=== PATIENT | male | born 1950 | race Caucasian/White ===

== ENCOUNTER 2025-09-12 18:13 | Emergency (ER) | payer OTHER, SELFPAY ==
[2025-09-12 18:18] VITALS: BP 144/99; PULSE 72; RESP 18; TEMP 36.8; O2SAT 98; BMI 24.7
--- NOTE | 2025-09-12 18:24 | DI.RAD.S_ITS ---
PROCEDURE: XR FINGER LT MIN 2V INDICATIONS: known abscess getting worse with abx TECHNIQUE: AP hand, 2 views of the 2nd finger(s) acquired. COMPARISON: None. FINDINGS: Bones: No fractures or dislocations. Osteoarthritic changes are noted throughout 2nd PIP and DIP joints. No gross bony erosive changes are noted. No suspicious bony lesions. Soft tissues: Soft tissue swelling surrounding distal portion of 2nd finger is seen. No suspicious soft tissue calcifications. 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 No acute fracture or dislocation. No radiographic evidence of osteomyelitis. Soft tissue swelling surrounding distal portion of 2nd finger. Dictated by: Tarun Bolden M.D. on 09/12/2025 at 19:01 Approved by: Tarun Bolden M.D. on 09/12/2025 at 19:01
[2025-09-12 22:24] VITALS: BP 162/77; PULSE 66; RESP 16; TEMP 36.3; O2SAT 99
--- NOTE | 2025-09-12 22:58 | PC.WOUNDPHOT ---
L index finger Swelling and induration from tip to base o L index finger Tip of L index finger
[2025-09-13] MEDS: LIDOCAINE 1% (PF) 5 ML INJ (00:02)
--- NOTE | 2025-09-13 00:38 | ED.GENADULT ---
HPI - General Adult General Chief complaint: Extremity Injury, Upper Stated complaint: Left index finger abcess. Time Seen by Provider: 09/12/25 22:29 Source: patient Mode of arrival: Ambulatory History of Present Illness HPI narrative: 75-year-old male with left index finger infection that is progressing on oral antibiotic Augmentin, had needle aspiration to suspected abscess in clinic, history of diabetes noted. Worsening infection and swelling of the affected finger today. No swelling to the hand or lymphangitic streaking of the forearm/wrist. He is tolerating the Augmentin, but unfortunately this infection is not resolving. No injury or foreign body/puncture recalled. No animal or human bite injury known. X-ray hand/finger series, no obvious foreign body or fracture, some DJD changes, no osteomyelitis changes. See radiology report. Related Data Previous Rx's ?Medication ?Instructions ?Recorded doxycycline hyclate 100 mg tablet 100 mg PO BID #14 tabs 09/13/25 doxycycline hyclate 150 mg tablet 100 mg (0.6667 x 150 mg) PO BID 7 09/13/25 days #10 tabs Allergies Allergy/AdvReac Type Severity Reaction Status Date / Time No Known Allergies Allergy Verified 09/12/25 18:23 Patient History Social History Smoking Status: Never smoker Smoking Status: Never smoker Exam Narrative Exam Narrative: GENERAL: Well-developed patient, in mild distress. HEAD: Atraumatic. Normocephalic. EYES: Pupils equal round and reactive. Extraocular motions intact. No scleral icterus. No injection or drainage. ENT: Nose without bleeding, purulent drainage. No obvious facial injury or swelling NECK: Trachea midline. Non tender CARDIOVASCULAR: Regular rate and rhythm without murmurs, gallops, or rubs. RESPIRATORY: Clear to auscultation. Breath sounds equal bilaterally. No wheezes, rales, or rhonchi. GASTROINTESTINAL: Abdomen soft, non-tender, nondistended. EXTREMITIES: Left index finger with periungual swelling and purulence appearance underneath the skin suspected abscess medial aspect, some surrounding erythema distal phalanx, no expressible fluid from underneath the nailbed. BACK: Nontender without deformity or crepitance. No flank tenderness. NEURO: AOx3. Motor functions grossly nonfocal. SKIN: No rash or erythema of visible areas Initial Vital Signs Initial Vital Signs: Vital Signs Temperature 98.2 F 09/12/25 18:18 Pulse Rate 72 09/12/25 18:18 Respiratory Rate 18 09/12/25 18:18 Blood Pressure 144/99 H 09/12/25 18:18 Pulse Oximetry 98 09/12/25 18:18 Oxygen Delivery Method Room Air 09/12/25 18:18 Procedures Abscess I/D I&D #1: Time of procedure: 01:30 Site: hand (Left index fingertip/nail) Side (if applicable): left Local Anesthetic: lidocaine 1% Amount of anesthesia used (mL): 2 Technique: incised with #11 blade Amount of fluid expressed (mL): 2 Irrigation: No Packing used?: none Complications: pain Course Orders Ordered: ED Orders 09/13/25 01:20 Wound Culture and Gram Stain Stat Discontinued Medications Amoxicillin/Clavulanate Potassium (Amoxicillin/Clav 875/125 Mg) 1 tab PO NOW ONE Stop: 09/13/25 01:23 Last Admin: 09/13/25 01:29 Dose: 1 tab Documented By: NEGAR Bacitracin (Bacitracin Oint 0.9 Gm Pckt) 1 applic TOP NOW ONE Stop: 09/13/25 01:49 Last Admin: 09/13/25 02:16 Dose: 1 applic Documented By: NEGAR Doxycycline Hyclate (Doxycycline Hyclate 100 Mg Tablet) 100 mg PO NOW ONE Stop: 09/13/25 01:23 Last Admin: 09/13/25 01:28 Dose: 100 mg Documented By: NEGAR Lidocaine HCl (Lidocaine 1% (Pf) 5 Ml) 5 ml INJ NOW ONE Stop: 09/12/25 23:47 Last Admin: 09/13/25 00:02 Dose: 5 ml Documented By: NEGAR Vital Signs Vital signs: Vital Signs - 8 hr 09/12/25 22:24 09/13/25 02:18 Temperature 97.3 F L Pulse Rate 66 72 Respiratory Rate 16 16 Blood Pressure 162/77 H 142/85 H Pulse Oximetry 99 99 Oxygen Delivery Method Room Air Room Air Oxygen Flow Rate 0 Medical Decision Making Lab Data Lab results reviewed: Yes I reviewed the patient's lab results. Lab results narrative: POC glucose 103. Wound culture pending. Labs: Lab Results 09/12/25 Range/Units 22:30 POC Whole Bld Glucose 103 H (70-99) mg/dL Imaging Data Extremity x-ray #1: Radiologist's Impression: [address] [address] XRay Report Signed Patient: Elieser Khan MR#: [id number] : 1950 Acct:[id number] Age/Sex: 75 / M Date of Service: 09/12/25 Loc: ED Accession Number: [id number] Procedure: XR finger LT min 2V Ordering Provider: Miguel Hancock MD PROCEDURE: XR FINGER LT MIN 2V INDICATIONS: known abscess getting worse with abx TECHNIQUE: AP hand, 2 views of the 2nd finger(s) acquired. COMPARISON: None. FINDINGS: Bones: No fractures or dislocations. Osteoarthritic changes are noted throughout 2nd PIP and DIP joints. No gross bony erosive changes are noted. No suspicious bony lesions. Soft tissues: Soft tissue swelling surrounding distal portion of 2nd finger is seen. No suspicious soft tissue calcifications. 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 No acute fracture or dislocation. No radiographic evidence of osteomyelitis. Soft tissue swelling surrounding distal portion of 2nd finger. Dictated by: Tarun Bolden M.D. on 09/12/2025 at 19:01 Approved by: Tarun Bolden M.D. on 09/12/2025 at 19:01 [facility] Narrative Medical decision making narrative: 75-year-old male diabetic on oral antibiotic Augmentin, needle aspiration of reported abscess, increasing pain and swelling with likely abscess area of fluctuance periungual medial aspect especially. Patient had verbal consent for incision and drainage procedure. Elio digital block, 11. Blade stab, purulence swabbed for culture, soaked in saline, expressed, dressed in antibiotic ointment and Alice wrap. Can continue Augmentin for now, history of diabetes noted. Add oral doxycycline for MRSA coverage, 1st dose now, prescription sent to requested pharmacy. Wound check advised Tuesday with PCP, return precautions discussed. Discharge Plan Departure Patient Disposition: Home Clinical Impression: Paronychia of finger Activity Restrictions/Additional Instructions: Left index finger infection, history of diabetes, taking oral Augmentin antibiotic, had recent office needle aspiration of suspected small abscess, increasing in size, with swelling and redness and suspected visible pus pocket underneath the skin around the nailbed. X-ray without obvious foreign body or fracture today of the affected left finger. Index finger with a paronychia appearance, surrounding nailbed abscess. Elio digital block placed, 11. Blade incision into the biggest fluctuant section, with the expression of pus, wound culture sent, further expression and soaking of saline, then dressing placed. Wound check advised with your regular doctor Tuesday. Consider [facility] follow up, contact information provided. Return earlier to this/nearest emergency department for any change worsening symptoms or any concerns prior. Continue taking your Augmentin antibiotic for now pending wound culture results. In case of MRSA (methicillin-resistant Staphylococcus aureus) we will give additional oral doxycycline antibiotic coverage, 1st dose now, prescription sent to your requested pharmacy. Prescriptions: New doxycycline hyclate 150 mg tablet 100 mg PO BID 7 Days Qty: 10 0RF doxycycline hyclate 100 mg tablet 100 mg PO BID Qty: 14 0RF Referrals: Safia Hernandez MD [Primary Care Provider, Family Practice] Stand Alone Forms: Patient Portal/API
[2025-09-13] MEDS: DOXYCYCLINE HYCLATE 100 MG TABLET PO (01:28)
[2025-09-13] MEDS: AMOXICILLIN/CLAV 875/125 MG 1 TAB PO (01:29)
[2025-09-13] MEDS: BACITRACIN OINT 0.9 GM PCKT 1 APPLIC TOP (02:16)
[2025-09-13 02:18] VITALS: BP 142/85; PULSE 72; RESP 16; O2SAT 99
== END 2025-09-13 02:20 | disposition home or self-care (01) ==
PROVIDERS: Emergency Provider Emergency Medicine; PCP Family Medicine
DX: L03.012 Cellulitis of left finger (principal)
CPT/HCPCS: 10061; 73140; 82962; 87070; 87075; 87077; 87147; 87205; 99283; 99284